=== PATIENT | male | born 1975 | race American Indian/Alaskan Native ===

== ENCOUNTER 2016-10-18 07:05 | Emergency (ER) | payer SELFPAY ==
[2016-10-18 07:14] VITALS: BP 137/95
[2016-10-18] MEDS ORDERED: TORADOL IM ONE (08:29)
--- NOTE | 2016-10-18 09:38 | Emergency Department Report ---
ED Fall HPI - General Chief Complaint: Fall Stated Complaint: SHOULDER AND BACK PAIN Time Seen by Provider: 10/18/16 08:22 Source: patient Mode of arrival: Ambulatory - History of Present Illness Initial Comments: PT states yesterday morning he was at work and he slipped and fell. PT states he was climbing a ladder, approx 14 feet high and he slipped due to wet rung. PT states he landed on his R side on concrete. PT states he briefly felt dazed but was able to get up and he felt okay. PT states he thought he could go home and some Motrin and be fine. PT was not seen yesterday. PT states the pain to his R shoulder has worsened. MD Complaint: fall -: Sudden Time: 08:00 Fall From: from height (distance) (14 feet) When Fall Occurred: [address] Fall Occurred: work Loss of Consciousness: none Prolonged Down Time?: no Symptoms Prior to Fall: none Location: back Location - Extremities: Right: Shoulder Severity scale (0 -10): 10 Quality: sharp Context: tripped/slipped Associated Symptoms: lightheaded (briefly after fall ). denies: headache, neck pain, numbness, weakness, chest paint, abdominal pain, hematuria, unable to walk - Related Data Previous Rx's Medication Instructions Recorded Last Taken Type Acetaminophen/Codeine [Tylenol #3] 1 tab PO Q6H PRN #12 tab 10/18/16 Unknown Rx Ibuprofen [Motrin] 600 mg PO Q8H PRN #15 tablet 10/18/16 Unknown Rx methOCARBAMOL [Robaxin TAB] 500 mg PO Q6H PRN #15 tablet 10/18/16 Unknown Rx Allergies Allergy/AdvReac Type Severity Reaction Status Date / Time No Known Allergies Allergy Verified 08/31/16 09:04 ED Review of Systems ROS: Stated complaint: SHOULDER AND BACK PAIN Other details as noted in HPI Comment: All other systems reviewed and negative Constitutional: denies: fever Cardiovascular: denies: chest pain Gastrointestinal: denies: abdominal pain, nausea, vomiting Genitourinary: denies: hematuria Musculoskeletal: as per HPI, back pain Skin: denies: change in color Neurological: denies: weakness, numbness, abnormal gait ED Past Medical Hx - Past Medical History Previous Medical History?: Yes Hx Hypertension: Yes Hx HIV: Yes - Surgical History Past Surgical History?: No - Social History Smoking Status: Current Some Day Smoker Substance Use Type: Alcohol, Marijuana, Prescribed - Medications Home Medications: Home Medications Medication Instructions Recorded Confirmed Last Taken Type Acetaminophen/Codeine [Tylenol #3] 1 tab PO Q6H PRN #12 tab 10/18/16 Unknown Rx Ibuprofen [Motrin] 600 mg PO Q8H PRN #15 tablet 10/18/16 Unknown Rx methOCARBAMOL [Robaxin TAB] 500 mg PO Q6H PRN #15 tablet 10/18/16 Unknown Rx ED Physical Exam - General Limitations: No Limitations General appearance: alert, other (appears in pain, gaurding R shouler) - Head Head exam: Present: atraumatic, normocephalic, normal inspection - Eye Eye exam: Present: normal appearance, EOMI. Absent: conjunctival injection - ENT ENT exam: Present: normal exam - Neck Neck exam: Present: normal inspection, tenderness (R trapezious tenderness ), full ROM, other (no post midline C-spine tenderness ) - Respiratory Respiratory exam: Present: normal lung sounds bilaterally. Absent: respiratory distress, wheezes, chest wall tenderness - Cardiovascular Cardiovascular Exam: Present: regular rate, normal rhythm, normal heart sounds - GI/Abdominal GI/Abdominal exam: Present: soft, other (no echymosis ). Absent: distended, tenderness, guarding, rebound - Extremities Exam Extremities exam: Present: normal inspection, normal capillary refill - Expanded Upper Extremity Exam Right Shoulder Exam: Present: normal inspection, tenderness. Absent: full ROM, swelling, abrasion, laceration, ecchymosis, deformity Upper Arm exam: Present: normal inspection Elbow exam: Present: normal inspection, other (pt states when his moves his elbow, his R shoulder hurts ). Absent: full ROM, tenderness, swelling, abrasion Hand Wrist exam: Present: normal inspection. Absent: ecchymosis - Back Exam Back exam: Present: normal inspection, tenderness, muscle spasm, paraspinal tenderness, vertebral tenderness. Absent: CVA tenderness (R), CVA tenderness (L ) - Neurological Exam Neurological exam: Present: alert, oriented X3, CN II-XII intact, normal gait - Psychiatric Psychiatric exam: Present: normal affect, normal mood - Skin Skin exam: Present: warm, dry, intact, normal color ED Course Vital Signs 10/18/16 07:11 Temperature 97.8 F Pulse Rate 80 Respiratory 20 Rate Blood Pressure 137/95 O2 Sat by Pulse 100 Oximetry - Reevaluation(s) Reevaluation #1: 10/18/16 11:15 PT states minimal relief after Toradol. Spoke with DR saez who recommends imaging of c and T spine due to height of fall Reevaluation #2: 10/18/16 12:34 PT aware of C-spine and T-spine XRs. - Pulse Oximetry Interpretation Digit-Finger Initial Pulse Oximetry Readin Actions Taken: none ED Medical Decision Making - Radiology Data Radiology results: report reviewed R shoulder- nap Cspine-NAP T spine- NAP L spine - NAP - Differential Diagnosis fracture, contusion, strain Critical care attestation.: If time is entered above; I have spent that time in minutes in the direct care of this critically ill patient, excluding procedure time. ED Disposition Clinical Impression: Fall from ladder Qualifiers: Encounter type: initial encounter Qualified Code(s): W11.XXXA - Fall on and from ladder, initial encounter Right shoulder pain Qualifiers: Chronicity: acute Qualified Code(s): M25.511 - Pain in right shoulder Low back pain Qualifiers: Chronicity: acute Back pain laterality: midline Sciatica presence: unspecified whether sciatica present Qualified Code(s): M54.5 - Low back pain Disposition: DISCHARGED TO HOME OR SELFCARE Is pt being admited?: No Does the pt Need Aspirin: No Condition: Stable Instructions: Acute Low Back Pain (ED), Shoulder Sprain (ED), Back Pain (ED), Fall Prevention (ED) Additional Instructions: Wear sling for comfort when up and active. Do not wear sling for over 1 week. No driving, work, or ETOH after taking Tylenol #3 or Robaxin Prescriptions: Acetaminophen/Codeine [Tylenol #3] 1 tab PO Q6H PRN #12 tab PRN Reason: Pain , Severe (7-10) Ibuprofen [Motrin] 600 mg PO Q8H PRN #15 tablet PRN Reason: Pain methOCARBAMOL [Robaxin TAB] 500 mg PO Q6H PRN #15 tablet PRN Reason: Muscle Spasm Referrals: RAVI BURGESS MD [Staff Physician] - 3-5 Days PRIMARY [facility]ARE, [Primary Care Provider] - 3-5 Days MARILYN GREEN MD [Staff Physician] - 3-5 Days Forms: Work/School Release Form(ED) Time of Disposition: 12:39
--- NOTE | 2016-10-18 10:29 | XRay Report ---
RIGHT SHOULDER: History: Pain after fall. Routine views demonstrate normal bony and soft tissue structures with normal joint alignment of the shoulder. IMPRESSION: Normal study.
--- NOTE | 2016-10-18 10:30 | XRay Report ---
AP AND LATERAL LUMBOSACRAL SPINE: History: Back pain after fall. The vertebral bodies are well mineralized and normal in alignment and vertebral height with well preserved interspace distances. The visualized portions of the posterior elements are normal. IMPRESSION: Normal study.
--- NOTE | 2016-10-18 12:00 | XRay Report ---
CERVICAL SPINE, 3 views: History: Neck pain. Findings: The vertebral bodies, disk spaces, posterior elements and prevertebral soft tissues are unremarkable. The dens is intact. No acute fracture or malalignment is identified. Impression: 1. No evidence for acute injury to the cervical spine.
--- NOTE | 2016-10-18 12:01 | XRay Report ---
THORACIC SPINE: History: Back pain. The bones are normally mineralized with well preserved vertebral height, alignment and interspace distances. No paraspinal soft tissue widening is noted. IMPRESSION: Normal study.
== END 2016-10-18 12:49 | disposition home or self-care (01) ==
LOC: ED 07:05
DX: M25.511 Pain in right shoulder (principal); R42 Dizziness and giddiness; M54.5 Low back pain; I10 Essential (primary) hypertension; F17.200 Nicotine dependence, unspecified, uncomplicated; F12.10 Cannabis abuse, uncomplicated; W01.0XXA Fall on same level from slipping, tripping and stumbling without subsequent striking against object, initial encounter; Y93.89 Activity, other specified; Y92.89 Other specified places as the place of occurrence of the external cause; Y99.8 Other external cause status
CPT/HCPCS: 72040; 72070; 72100; 73030; 96372; 99283; J1885

== ENCOUNTER 2017-02-17 12:50 | Emergency (ER) | payer SELFPAY ==
[2017-02-17 13:38] VITALS: BP 142/97
--- NOTE | 2017-02-17 16:12 | Emergency Department Report ---
ED ENT HPI - General Chief complaint: Dental/Oral Stated complaint: TOOTHACHE Time Seen by Provider: 02/17/17 16:00 Source: patient Mode of arrival: Ambulatory Limitations: No Limitations - History of Present Illness Initial comments: PT c/o gradual onset toothache to R upper tooth. PT states his last dental appointment was 2 years ago and he was told that he needs dental work but he did not follow up. PT states his pain is 10/10 and he gets mild relief from Motrin 600 mgs. PT states his head is also hurting. MD complaint: tooth pain -: Gradual, week(s) (1) Location: other (R upper tooth ) Severity: severe Severity scale (0 -10): 10 Quality: aching, sharp Consistency: constant Improves with: NSAID Worsens with: eating Context- Dental: poor dental care Associated Symptoms: toothache. denies: fever, cough, gum swelling - Related Data Previous Rx's Medication Instructions Recorded Last Taken Type Acetaminophen/Codeine [Tylenol #3] 1 tab PO Q6H PRN #12 tab 02/17/17 Unknown Rx Amoxicillin 500 mg PO BID #20 capsule 02/17/17 Unknown Rx Ibuprofen [Motrin] 600 mg PO Q8H PRN #15 tablet 02/17/17 Unknown Rx Allergies Allergy/AdvReac Type Severity Reaction Status Date / Time No Known Allergies Allergy Verified 08/31/16 09:04 ED Dental HPI - General Chief complaint: Dental/Oral Stated complaint: TOOTHACHE Time Seen by Provider: 02/17/17 16:00 Source: patient Mode of arrival: Ambulatory Limitations: No Limitations - Related Data Previous Rx's Medication Instructions Recorded Last Taken Type Acetaminophen/Codeine [Tylenol #3] 1 tab PO Q6H PRN #12 tab 02/17/17 Unknown Rx Amoxicillin 500 mg PO BID #20 capsule 02/17/17 Unknown Rx Ibuprofen [Motrin] 600 mg PO Q8H PRN #15 tablet 02/17/17 Unknown Rx Allergies Allergy/AdvReac Type Severity Reaction Status Date / Time No Known Allergies Allergy Verified 08/31/16 09:04 ED Review of Systems ROS: Stated complaint: TOOTHACHE Other details as noted in HPI Comment: All other systems reviewed and negative Constitutional: denies: chills, fever ENT: as per HPI. denies: ear pain Gastrointestinal: denies: abdominal pain, nausea, vomiting Neurological: headache ED Past Medical Hx - Past Medical History Hx Hypertension: Yes Hx HIV: Yes - Surgical History Past Surgical History?: No - Social History Smoking Status: Current Every Day Smoker Substance Use Type: Alcohol - Medications Home Medications: Home Medications Medication Instructions Recorded Confirmed Last Taken Type Acetaminophen/Codeine [Tylenol #3] 1 tab PO Q6H PRN #12 tab 02/17/17 Unknown Rx Amoxicillin 500 mg PO BID #20 capsule 02/17/17 Unknown Rx Ibuprofen [Motrin] 600 mg PO Q8H PRN #15 tablet 02/17/17 Unknown Rx ED Physical Exam - General Limitations: No Limitations General appearance: alert, in no apparent distress - Head Head exam: Present: atraumatic, normocephalic, normal inspection, other (no facial swelling noted ) - Eye Eye exam: Present: normal appearance, PERRL, EOMI. Absent: conjunctival injection, nystagmus - ENT ENT exam: Present: normal orophraynx, mucous membranes moist, TM's normal bilaterally, normal external ear exam - Expanded ENT Exam Expanded Mouth exam: Absent: drooling, trismus Teeth exam: Present: dental caries, other (front upper teeth with gold colored coating. No sign's of Jesus's ). Absent: dental tenderness # 1 - Other (dental decay) 2 - Other (dental decay) Throat exam: Positive: normal inspection - Neck Neck exam: Present: normal inspection. Absent: tenderness, full ROM, lymphadenopathy - Respiratory Respiratory exam: Present: normal lung sounds bilaterally. Absent: respiratory distress - Cardiovascular Cardiovascular Exam: Present: regular rate, normal rhythm, normal heart sounds - Extremities Exam Extremities exam: Present: normal inspection, full ROM - Back Exam Back exam: Present: normal inspection, full ROM - Neurological Exam Neurological exam: Present: alert, oriented X3, normal gait - Psychiatric Psychiatric exam: Present: normal affect, normal mood - Skin Skin exam: Present: warm, dry, intact, normal color ED Course Vital Signs 02/17/17 13:35 Temperature 98.5 F Pulse Rate 97 H Respiratory 18 Rate Blood Pressure 142/97 O2 Sat by Pulse 97 Oximetry - Reevaluation(s) Reevaluation #1: 02/17/17 16:14 PT aware of dx and need to follow up with Dentist. PT has no questions at this time. - Pulse Oximetry Interpretation Digit-Finger Initial Pulse Oximetry Readin Actions Taken: none ED Medical Decision Making - Differential Diagnosis dental abscess, toothache Critical Care Time: No Critical care attestation.: If time is entered above; I have spent that time in minutes in the direct care of this critically ill patient, excluding procedure time. ED Disposition Clinical Impression: Toothache Disposition: DC- TO HOME OR SELFCARE Is pt being admited?: No Does the pt Need Aspirin: No Condition: Stable Instructions: Dental Caries (ED), Toothache (ED) Additional Instructions: No driving or alcohol after taking Tylenol #3 return to the ED if you notice facial swelling, you have trouble swallowing or drooling Follow up with Dentist early next week follow up with PCP in 3-5 days Have your bp checked at follow up Prescriptions: Acetaminophen/Codeine [Tylenol #3] 1 tab PO Q6H PRN #12 tab PRN Reason: Pain , Severe (7-10) Amoxicillin 500 mg PO BID #20 capsule Ibuprofen [Motrin] 600 mg PO Q8H PRN #15 tablet PRN Reason: Pain Referrals: PRIMARY CARE, [Primary Care Provider] - 3-5 Days JANETTE RASMUSSEN MD [Staff Physician] - 3-5 Days [facility] [Outside] - 3-5 Days [facility] [Outside] - 3-5 Days Time of Disposition: 16:16
== END 2017-02-17 16:29 | disposition home or self-care (01) ==
LOC: ED 12:50
DX: K08.89 Other specified disorders of teeth and supporting structures (principal); I10 Essential (primary) hypertension; F17.200 Nicotine dependence, unspecified, uncomplicated
CPT/HCPCS: 99282